=== PATIENT | female | born 1955 | race Hispanic/Latino ===

== ENCOUNTER 2021-04-14 23:50 | Emergency (ER) | payer OTHER ==
[~2021-04-14] VITALS: Ht 160 cm; Wt 71.7 kg
[2021-04-15 00:08] VITALS: BP 124/76
[2021-04-15 02:03] VITALS: BP 118/68
== END 2021-04-15 02:10 ==
LOC: EDH 04-15 00:23
DX: F41.9 Anxiety disorder, unspecified (principal); I10 Essential (primary) hypertension; R53.1 Weakness; Z98.890 Other specified postprocedural states